=== PATIENT | male | born 1995 | race Caucasian/White ===

== ENCOUNTER 2023-07-29 12:13 | Emergency (ER) | payer SELFPAY ==
[~2023-07-29] VITALS: Ht 185.4 cm; Wt 68.5 kg
[2023-07-29 12:17] VITALS: O2SAT 97
[2023-07-29 13:03] LABS: BASOPHILS % 0.8 % (0.0-2.0); DIFFERENTIAL COMMENT 0; EOSINOPHILS % 0.2 % (0.0-5.0); HEMATOCRIT. 45.1 % (42.0-52.0); HEMOGLOBIN. 15.6 g/dL (14.0-18.0); LYMPHOCYTES % 20.5 % (20.0-50.0); MEAN CORPUSCULAR HEMOGLOBIN 34.8 pg (28.0-32.0); MEAN CORPUSCULAR HGB CONC 34.7 g/dL (31.0-37.0); MEAN CORPUSCULAR VOLUME 100.3 fL (80.0-94.0); MEAN PLATELET VOLUME 7.3 fl (7.4-10.4); MONOCYTES % 8.6 % (2.0-8.0); NEUTROPHILS % 69.9 % (40.0-76.0); PLATELET 210 x1000/uL (130-400); RED BLOOD CELL COUNT 4.49 mill/uL (4.7-6.1); RED CELL DISTRIBUTION WIDTH 12.8 % (11.6-14.6); WHITE BLOOD COUNT 3.3 x1000/uL (4.5-11.0)
[2023-07-29] MEDS: ONDANSETRON HCL 4MG/2ML INJ IV STA (13:09)
[2023-07-29] MEDS: SODIUM CHLORIDE 0.9% 1,000 ML IV ONE (13:09)
[2023-07-29] MEDS: CHLORDIAZEPOXIDE 25MG CAPSULE PO ONE (13:10)
[2023-07-29 13:12] LABS: PROTHROMBIN TIME 10.8 sec (9.6-11.0)
[2023-07-29 13:27] LABS: ALANINE AMINOTRANSFERASE 107 IU/L (10-49); ASPARTATE AMINOTRANSFERASE 137 IU/L (<34); CALCIUM 9.3 mg/dL (8.7-10.4); CARBON DIOXIDE 22 mEq/L (21-32); CHLORIDE 103 mEq/L (98-107); CREATININE 0.9 mg/dL (0.6-1.3); GLUCOSE 99 mg/dL (70-105); POTASSIUM 3.9 mEq/L (3.5-5.1); PROTEIN TOTAL 8.3 g/dL (6.0-8.3); SODIUM 140 mEq/L (136-145); UREA NITROGEN BLOOD 9 mg/dL (9-23)
[2023-07-29 13:45] LABS: TROPONIN I HIGH SENSITIVITY < 4 ng/L (3.0-53)
[2023-07-29] MEDS: ONDANSETRON HCL 4MG/2ML INJ IV ONE (14:27)
[2023-07-29 17:57] LABS: CLARITY URINE CLEAR (CLEAR); COLOR URINE YELLOW (YELLOW); GLUCOSE URINE NEGATIVE (NEGATIVE); KETONES URINE 1+ (NEGATIVE); LEUKOCYTE ESTERASE URINE NEGATIVE (NEGATIVE); NITRITE URINE NEGATIVE (NEGATIVE); OCCULT BLOOD URINE NEGATIVE (NEGATIVE); PROTEIN URINE TRACE (NEGATIVE); SPECIFIC GRAVITY URINE 1.021 (1.005-1.030)
[2023-07-29 18:18] LABS: BACTERIA URINE NONE SEEN; RBC URINE NONE SEEN /hpf (0-2); SQUAMOUS EPITHELIAL CELL URINE NONE SEEN /lpf (RARE/1+); WBC URINE 0-2 /hpf (0-2); YEAST URINE NONE SEEN
[2023-07-29 19:30] VITALS: BP 123/69; PULSE 81; RESP 18; TEMP 98.8
== END 2023-07-29 19:32 | disposition home or self-care (01) ==
LOC: ER 12:58
DX: R11.2 Nausea with vomiting, unspecified (principal); F10.90 Alcohol use, unspecified, uncomplicated; Y90.9 Presence of alcohol in blood, level not specified
CPT/HCPCS: 80053; 81003; 83690; 85025; 85610; 84484; 36415; 71045; 93005; 96374; 99285; J2405; J7030; Z7610 ×2